=== PATIENT | female | born 1985 | race American Indian/Alaskan Native ===

== ENCOUNTER 2019-05-22 01:17 | Emergency (ER) | payer MEDICAID ==
[2019-05-22 02:37] LABS: Basophils % (Auto) 0.5 % (0.0-1.8); Eosinophils # (Auto) 0.1 K/mm3 (0.0-0.4); Eosinophils % (Auto) 1.6 % (0.0-4.3); Hematocrit 34.8 % (30.3-42.9); Hemoglobin 11.8 gm/dl (10.1-14.3); Lymphocytes # (Auto) 1.3 K/mm3 (1.2-5.4); Lymphocytes % (Auto) 21.7 % (13.4-35.0); Mean Corpuscular HGB Conc 34 % (30-34); Mean Corpuscular Volume 99 fl (79-97); Monocytes # (Auto) 0.6 K/mm3 (0.0-0.8); Monocytes % (Auto) 10.3 % (0.0-7.3); Platelet Count 202 K/mm3 (140-440); Red Cell Distribution Width 14.3 % (13.2-15.2)
[2019-05-22 02:51] LABS: BUN/Creatinine Ratio 10; Blood Urea Nitrogen 6 mg/dL (7-17); Hemolysis Index 2
[2019-05-22] MEDS ORDERED: NACL 0.9% 1000 ML 1,000 ML IV ONE (03:12)
--- NOTE | 2019-05-22 03:15 | Emergency Department Report ---
ED General Adult HPI - General Chief complaint: Upper Respiratory Infection Stated complaint: 20WKS FLU SYMPTONS Time Seen by Provider: 05/22/19 02:56 Source: patient Mode of arrival: Ambulatory Limitations: No Limitations - History of Present Illness Initial comments: Patient is a 34-year-old female presents to the emergency room with complaints of nasal congestion that began 4 days ago. Patient has associated mild sore throat, dry cough, generalized body aches. Patient states also for the last 3 days she has had nausea and vomiting. She denies any fever, rhinorrhea, sick contact. She is currently 20 weeks . Her SPRAYER MACHINE is women[facility] at [place]. She is taking it daily vitamin. she denies any vaginal bleeding, abdominal pain, urinary symptoms, vaginal discharge. She has not been taking anything for her symptoms. This is her first . Has medical history of asthma. Denies any other daily medications. - Related Data Previous Rx's Medication Instructions Recorded Last Taken Type Doxylamine Succinate [Unisom] 25 mg PO DAILY PRN #14 tablet 05/22/19 Unknown Rx Pyridoxine HCl (Vitamin B6) 25 mg PO DAILY PRN #14 tablet 05/22/19 Unknown Rx [Pyridoxine HCl] Allergies Allergy/AdvReac Type Severity Reaction Status Date / Time doxycycline Allergy Itching Verified 05/22/19 01:22 gabapentin Allergy Itching Verified 05/22/19 01:21 naproxen Allergy Itching Verified 05/22/19 01:22 tramadol Allergy Itching Verified 05/22/19 01:21 ED Review of Systems ROS: Stated complaint: 20WKS FLU SYMPTONS Other details as noted in HPI Comment: All other systems reviewed and negative ED Past Medical Hx - Past Medical History Previous Medical History?: Yes Additional medical history: 20 weeks - Surgical History Past Surgical History?: Yes Additional Surgical History: Left ACL, Left knee anthroscopy, and left wrist cyst removal - Social History Smoking Status: Never Smoker Substance Use Type: None - Medications Home Medications: Home Medications Medication Instructions Recorded Confirmed Last Taken Type Doxylamine Succinate [Unisom] 25 mg PO DAILY PRN #14 tablet 05/22/19 Unknown Rx Pyridoxine HCl (Vitamin B6) 25 mg PO DAILY PRN #14 tablet 05/22/19 Unknown Rx [Pyridoxine HCl] ED Physical Exam - General Limitations: No Limitations General appearance: alert, in no apparent distress - Head Head exam: Present: atraumatic, normocephalic - Eye Eye exam: Present: normal appearance, PERRL, EOMI - ENT ENT exam: Present: normal orophraynx, mucous membranes moist, TM's normal bilaterally, normal external ear exam, other (pale boggy turbinates with clear nasal discharge ) - Neck Neck exam: Present: full ROM. Absent: meningismus - Respiratory Respiratory exam: Present: normal lung sounds bilaterally. Absent: respiratory distress, wheezes, rales, rhonchi, stridor, chest wall tenderness, accessory muscle use, decreased breath sounds, prolonged expiratory - Cardiovascular Cardiovascular Exam: Present: regular rate, normal rhythm, systolic murmur. Absent: rubs, gallop - Neurological Exam Neurological exam: Present: alert, oriented X3 - Psychiatric Psychiatric exam: Present: normal affect, normal mood - Skin Skin exam: Present: warm, dry, intact ED Course Vital Signs 05/22/19 05/22/19 01:50 04:57 Temperature 98 F 97.8 F Pulse Rate 81 68 Respiratory 18 18 Rate Blood Pressure 126/81 Blood Pressure 127/91 [Right] O2 Sat by Pulse 100 100 Oximetry ED Medical Decision Making - Lab Data Result diagrams: 05/22/19 02:16 05/22/19 02:16 Lab Results 05/22/19 05/22/19 05/22/19 Range/Units 02:16 02:16 02:16 WBC 6.0 (4.5-11.0) K/mm3 RBC 3.50 L (3.65-5.03) M/mm3 Hgb 11.8 (10.1-14.3) gm/dl Hct 34.8 (30.3-42.9) % MCV 99 H (79-97) fl MCH 34 H (28-32) pg MCHC 34 (30-34) % RDW 14.3 (13.2-15.2) % Plt Count 202 (140-440) K/mm3 Lymph % (Auto) 21.7 (13.4-35.0) % [place] % (Auto) 10.3 H (0.0-7.3) % Eos % (Auto) 1.6 (0.0-4.3) % Baso % (Auto) 0.5 (0.0-1.8) % Lymph # 1.3 (1.2-5.4) K/mm3 Deuel # 0.6 (0.0-0.8) K/mm3 Eos # 0.1 (0.0-0.4) K/mm3 Baso # 0.0 (0.0-0.1) K/mm3 Seg Neutrophils % 65.9 (40.0-70.0) % Seg Neutrophils # 4.0 (1.8-7.7) K/mm3 Sodium 138 (137-145) mmol/L Potassium 3.9 (3.6-5.0) mmol/L Chloride 103.5 (98-107) mmol/L Carbon Dioxide 23 (22-30) mmol/L Anion Gap 15 mmol/L BUN 6 L (7-17) mg/dL Creatinine 0.6 L (0.7-1.2) mg/dL Estimated GFR > 60 ml/min BUN/Creatinine Ratio 10 % Glucose 96 (65-100) mg/dL Calcium 9.0 (8.4-10.2) mg/dL HCG, Quant 9710 H (0-4) mIU/mL Vital Signs 05/22/19 05/22/19 01:50 04:57 Temperature 98 F 97.8 F Pulse Rate 81 68 Respiratory 18 18 Rate Blood Pressure 126/81 Blood Pressure 127/91 [Right] O2 Sat by Pulse 100 100 Oximetry - Medical Decision Making Patient is a 34-year-old female presents to the emergency room with complaints of nasal congestion that began 4 days ago. Patient has associated mild sore throat, dry cough, generalized body aches. Patient states also for the last 3 days she has had nausea and vomiting. She denies any fever, rhinorrhea, sick contact. She is currently 20 weeks . Her SPRAYER MACHINE is women[facility] health care at [place]. She is taking it daily vitamin. she denies any vaginal bleeding, abdominal pain, urinary symptoms, vaginal discharge. She has not been taking anything for her symptoms. This is her first . Has medical history of asthma. Denies any other daily medications. on exam: pale boggy turbinates with clear nasal discharge, rest of exam is normal. labs WNL. vitals are normal. pt is afebrile. pt given 1L of fluids. pt had no episodes of emesis while in the ED. discussed with pt symptomatic treatment for a cold including neti pot, humidifier, tylenol for discomfort, drinking plenty of fluids, warm salt water gargles. follow up with PCP and table machine operator in the next 2-3 days. return to the emergency room for any new or worsening symptoms. spoke with DR. Montejo regarding pt history, examination, and results agrees with symptomatic cold tx and to have pt follow up with PCP and SPRAYER MACHINE. - Differential Diagnosis URI, allergic rhinitis, seasonal allergies, viral syndrome Critical care attestation.: If time is entered above; I have spent that time in minutes in the direct care of this critically ill patient, excluding procedure time. ED Disposition Clinical Impression: Nasal congestion, Dry cough, Nausea/vomiting in Disposition: - TO HOME OR SELFCARE Is pt being admited?: No Does the pt Need Aspirin: No Condition: Stable Instructions: Hyperemesis Gravidarum (ED), Cold Symptoms (ED) Additional Instructions: please use symptomatic treatment including neti pot, humidifier, tylenol for discomfort, drinking plenty of fluids, warm salt water gargles. follow up with primary care doctor and table machine operator in the next 2-3 days. return to the emergency room for any new or worsening symptoms. take medication as prescribed as needed for vomiting. Prescriptions: Pyridoxine HCl (Vitamin B6) [Pyridoxine HCl] 25 mg PO DAILY PRN #14 tablet PRN Reason: Nausea And Vomiting Doxylamine Succinate [Unisom] 25 mg PO DAILY PRN #14 tablet PRN Reason: Nausea And Vomiting Referrals: PRIMARY CARE,MD [Primary Care Provider] - 2-3 Days your, SPRAYER MACHINE [Other] - 2-3 Days Time of Disposition: 04:41 Print Language: SLOVENIAN
[2019-05-22 04:58] VITALS: BP 127/91
== END 2019-05-22 05:03 | disposition home or self-care (01) ==
LOC: ED 01:17
DX: O21.9 Vomiting of pregnancy, unspecified (principal); O26.892 Other specified pregnancy related conditions, second trimester; J02.9 Acute pharyngitis, unspecified; R09.81 Nasal congestion; R05 Cough; M79.10 Myalgia, unspecified site; Z3A.20 20 weeks gestation of pregnancy; Z98.890 Other specified postprocedural states; Z79.899 Other long term (current) drug therapy; Z88.6 Allergy status to analgesic agent; Z88.1 Allergy status to other antibiotic agents; Z88.8 Allergy status to other drugs, medicaments and biological substances
CPT/HCPCS: 36415; 80048; 84702; 85025; 96360; 99283; J7030

== ENCOUNTER 2021-07-18 21:31 | Emergency (ER) | payer MEDICAID, OTHER ==
[2021-07-18 22:14] VITALS: BP 194/115
--- NOTE | 2021-07-19 00:33 | XRay Report ---
Right fingers 3 views INDICATION: Right finger pain following injury IMPRESSION: Comminuted fracture involving the distal tuft of the middle finger distal phalanx. With m oderate surrounding soft tissue edema. Signer Name: Ferny Soares MD Signed: 07/19/2021 12:28 AM Workstation Name: [id number]
[2021-07-19] MEDS ORDERED: HYDROcodone/ACETAMINOPHEN 5-325 MG TAB PO ONE (01:15)
[2021-07-19] MEDS ORDERED: IBUPROFEN 600 MG TAB PO ONE (01:15)
[2021-07-19] MEDS ORDERED: ceFAZolin 1 GM VIAL IM ONE (01:15)
[2021-07-19] MEDS ORDERED: TETANUS,DIPH,PERTUSS(ACELL) VACCINE 0.5 ML SYRINGE IM ONE (01:15)
[2021-07-19] MEDS ORDERED: ONDANSETRON 4 MG ODT TAB PO ONE (01:16)
--- NOTE | 2021-07-19 02:03 | Emergency Department Report ---
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 Patient states that the pain and the bleeding has been persistent despite addressing it with Band-Aids. Patient states that she is not up-to-date with her tetanus vaccinations. Patient states that the pain and the bleeding are persistent and severe especially with any active range of motion. Patient denies syncope, nausea, vomiting, fall, loss of consciousness, numbness and tingling or weakness of right hand or right middle finger. MD Complaint: Injury to:: right, finger (Distal right ring finger pain, bleeding ) -: Sudden, hour(s) (6) Other Extremity Injury: Fingers: Right (distal right middle finger pain, bleeding puncture wound) Other Injuries: none Handedness: right Place: work Severity scale (0 -10): 8 Improves With: none Worsens With: movement of extremity Context: direct blow (hit dostal right middle finger), laceration (distal right middle finger partial nail avulsion), injury Associated Symptoms: denies other symptoms. denies: weakness, numbness, neck pain, suspects foreign body, nausea/vomiting, heard/felt popping sensat Treatments Prior to Arrival: bandage - Related Data Previous Rx's Medication Instructions Recorded Last Taken Type Doxylamine Succinate [Unisom] 25 mg PO DAILY PRN #14 tablet 05/22/19 Unknown Rx Pyridoxine HCl (Vitamin B6) 25 mg PO DAILY PRN #14 tablet 05/22/19 Unknown Rx [Pyridoxine HCl] HYDROcodone/APAP 5-325 [[place] 1 each PO Q6HR PRN #12 tablet 07/19/21 Unknown Rx 5/325] Ibuprofen [Motrin] 800 mg PO Q8HR PRN #30 tablet 07/19/21 Unknown Rx cephALEXin [Keflex] 500 mg PO Q8HR #30 cap 07/19/21 Unknown Rx Allergies Allergy/AdvReac Type Severity Reaction Status Date / Time doxycycline Allergy Itching Verified 05/22/19 01:22 gabapentin Allergy Itching Verified 05/22/19 01:21 naproxen Allergy Itching Verified 05/22/19 01:22 tramadol Allergy Itching Verified 05/22/19 01:21 ED Review of Systems ROS: Stated complaint: FINGER WONT STOP BLEEDING TURNING PURPLE Other details as noted in HPI Constitutional: denies: chills, fever Eyes: denies: eye pain, eye discharge, vision change ENT: denies: ear pain, throat pain Respiratory: denies: cough, shortness of breath, wheezing Cardiovascular: denies: chest pain, palpitations Endocrine: no symptoms reported Gastrointestinal: denies: abdominal pain, nausea, diarrhea Genitourinary: denies: urgency, dysuria, discharge Musculoskeletal: joint swelling (distal right middle finger), arthralgia (distal right middle finger pain due to a partial nail avulsion). denies: back pain Skin: other (Bleeding distal right middle finger partial nail avulsion). denies: rash, lesions Neurological: denies: headache, weakness, paresthesias Psychiatric: denies: anxiety, depression Hematological/Lymphatic: denies: easy bleeding, easy bruising ED Past Medical Hx - Past Medical History Previous Medical History?: No Additional medical history: 20 weeks - Surgical History Past Surgical History?: Yes Additional Surgical History: Left ACL, Left knee anthroscopy, and left wrist cyst removal - Social History Smoking Status: Current Every Day Smoker Substance Use Type: None - Medications Home Medications: Home Medications Medication Instructions Recorded Confirmed Last Taken Type Doxylamine Succinate [Unisom] 25 mg PO DAILY PRN #14 tablet 05/22/19 Unknown Rx Pyridoxine HCl (Vitamin B6) 25 mg PO DAILY PRN #14 tablet 05/22/19 Unknown Rx [Pyridoxine HCl] HYDROcodone/APAP 5-325 [[place] 1 each PO Q6HR PRN #12 tablet 07/19/21 Unknown Rx 5/325] Ibuprofen [Motrin] 800 mg PO Q8HR PRN #30 tablet 07/19/21 Unknown Rx cephALEXin [Keflex] 500 mg PO Q8HR #30 cap 07/19/21 Unknown Rx ED Physical Exam - General Limitations: No Limitations General appearance: alert, in no apparent distress - Head Head exam: Present: atraumatic, normocephalic, normal inspection - Eye Eye exam: Present: normal appearance, PERRL, EOMI Pupils: Present: normal accommodation - ENT ENT exam: Present: normal exam, normal orophraynx, mucous membranes moist, TM's normal bilaterally, normal external ear exam - Neck Neck exam: Present: normal inspection, full ROM - Respiratory Respiratory exam: Present: normal lung sounds bilaterally. Absent: respiratory distress, wheezes, rales, rhonchi, chest wall tenderness, accessory muscle use, decreased breath sounds - Cardiovascular Cardiovascular Exam: Present: normal rhythm, bradycardia, normal heart sounds. Absent: systolic murmur, diastolic murmur, rubs, gallop - GI/Abdominal GI/Abdominal exam: Present: soft, normal bowel sounds. Absent: tenderness, guarding, rebound, hyperactive bowel sounds, hypoactive bowel sounds, organomegaly - Extremities Exam Extremities exam: Present: normal inspection, full ROM, tenderness (Palpable distal right middle finger tenderness due to distal right middle finger swelling and partial nail avulsion), normal capillary refill, joint swelling (distal right middle finger). Absent: calf tenderness - Back Exam Back exam: Present: normal inspection, full ROM. Absent: tenderness, CVA tenderness (R), CVA tenderness (L), muscle spasm, paraspinal tenderness, vertebral tenderness - Neurological Exam Neurological exam: Present: alert, oriented X3, CN II-XII intact, normal gait, reflexes normal - Psychiatric Psychiatric exam: Present: normal affect, normal mood - Skin Skin exam: Present: warm, dry, intact, normal color, other (Bleeding distal right middle finger partial nail avulsion with swelling, tenderness and ecchymosis). Absent: rash ED Course Vital Signs 07/18/21 22:13 Temperature 98.1 F Pulse Rate 55 L Respiratory 18 Rate Blood Pressure 194/115 O2 Sat by Pulse 100 Oximetry ED Medical Decision Making - Radiology Data Radiology results: report reviewed, image reviewed [facility] [address] [place] [address] XRay Report Signed Patient: DEBORAH MARTIN MR#: [id number] : 1985 Acct:[id number] Age/Sex: 36 / F ADM Date: 07/18/21 Loc: ED Attending Dr: Ordering Physician: STEPHANIE HILL Date of Service: 07/19/21 Procedure(s): XR finger(s) 2+V RT Accession Number(s): [id number] cc: STEPHANIE HILL Fluoro Time In Minutes: Right fingers 3 views INDICATION: Right finger pain following injury IMPRESSION: Comminuted fracture involving the distal tuft of the middle finger distal phalanx. With moderate surrounding soft tissue edema. 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 Patient states that the pain and the bleeding has been persistent despite addressing it with Band-Aids. Patient states that she is not up-to-date with her tetanus vaccinations. Patient states that the pain and the bleeding are persistent and severe especially with any active range of motion. In the ED, patient is alert and oriented x3 and is not in any distress. Patient is hemodynamically stable. Patient was treated for pain in the ED and right middle finger x-ray showed a comminuted fracture involving the distal tuft of the middle finger distal phalanx with moderate surrounding soft tissue edema. Patient also received booster tetanus vaccination in the ED. Patient received Ancef 1 g intramuscular injection empirically. The distal right middle finger fracture was splinted with finger splint and the patient was discharged home on pain medications and antibiotics. Patient was given a referral to the orthopedic hand surgeon Dr. Jarrod Soto for follow-up in the next 3 to 5 days. Patient was advised to contact Dr. Soto's office first thing in the morning today Monday, July 19, 2021 to schedule a follow-up appointment with Dr. Soto for further evaluation. Patient was also advised return to the ED immediately if symptoms get worse. - Differential Diagnosis Finger fracture; Finger contusion; Finger laceration; nail avulsion Critical care attestation.: If time is entered above; I have spent that time in minutes in the direct care of this critically ill patient, excluding procedure time. ED Disposition Clinical Impression: Avulsion of fingernail of right hand Displaced fracture of phalanx of right middle finger Qualifiers: Encounter type: initial encounter Fracture type: closed Phalanx: distal Qualified Code(s): S62.632A - Displaced fracture of distal phalanx of right middle finger, initial encounter for closed fracture Disposition: HOME / SELF CARE / HOMELESS Is pt being admited?: No Does the pt Need Aspirin: No Condition: Stable Instructions: Fingernail or Toenail Removal, Adult, Care After, Cast or Splint Care, Adult, [id number], Finger Fracture, Adult, [id number] Additional Instructions: The right middle finger x-ray showed a comminuted fracture of distal tuft of the right middle finger. Therefore take pain medications with food, drink plenty of fluids and follow-up with the orthopedic hand surgeon Dr. Jarrod Soto in the next 3 to 5 days for reevaluation. Contact Dr. Soto's office first thing in the morning today July 19, 2021 to schedule a follow-up appointment. Return to the ED immediately if symptoms get worse. Prescriptions: cephALEXin [Keflex] 500 mg PO Q8HR #30 cap Ibuprofen [Motrin] 800 mg PO Q8HR PRN #30 tablet PRN Reason: Pain , Severe (7-10) HYDROcodone/APAP 5-325 [[place] 5/325] 1 each PO Q6HR PRN #12 tablet PRN Reason: Pain Referrals: JARROD SOTO JR, MD [Referring] - 3-5 Days [facility] [Provider Group] - 7-10 days Forms: Work/School Release Form(ED) Time of Disposition: 02:10 Print Language: CENTRAL AFRICAN
== END 2021-07-19 02:30 | disposition home or self-care (01) ==
LOC: ED 21:31
DX: S61.302A Unspecified open wound of right middle finger with damage to nail, initial encounter (principal); S62.632A Displaced fracture of distal phalanx of right middle finger, initial encounter for closed fracture; W22.8XXA Striking against or struck by other objects, initial encounter; Z88.6 Allergy status to analgesic agent; Z88.1 Allergy status to other antibiotic agents; Z88.8 Allergy status to other drugs, medicaments and biological substances; Y93.89 Activity, other specified; Y92.89 Other specified places as the place of occurrence of the external cause; Y99.8 Other external cause status
CPT/HCPCS: 29130; 73140; 90471; 90715; 96372; 99283; J0690; Q0162